=== PATIENT | female | born 1995 | race Caucasian/White ===

== ENCOUNTER 2023-10-18 19:51 | Observation (INO) | payer BC, SELFPAY ==
--- NOTE | 2023-10-18 20:31 | P.EN_ITS ---
Event Note Event Note: [id number] patient texted me at home Hey I'm heading to the hospital soon. I wasn't sure where the number came from so I called it and she said I can't talk, talk to my aunt. The aunt stated she's been hima and they are about every minute and they have been for awhile. She then stated she was in the tub and they would go to the hospital soon. 1930 I was waiting at the hospital for the patient and at 1930 i called the patient and asked if she was ok and was she coming? They were on [address] and headed to the hospital. 1950 patient arrives on unit and has multiple family members. Her mother in law spoke with me and stated they were planning a home , the aunt was there and she has had 9 children, and told Kathleen Gagan ( the mother in law) that she can deliver this baby. Ktahleen states they were gathering blankets, patient was in the tub, and they had scissors ready to cut the cord. She states to me I got scared and I told them this is not safe and you need to go to the hospital. She then told me she had the C/S before with Yun so I knew it was dangerous. I did not know the patient was a previous section. Her care was very limited with me due to the medical treatment and needs of her 4 yo who has an inoperable brain cancer. I ran to the room and multiple family members there and I had difficulty speaking with patient as her and other family members spoke for her. She kept repeating to me it's ok, i just want peace, i can do this, I can't have a c section. I explained to her in depth it is dangerous to attempt vaginal here after previous section. I told her I would call Dr Licona and we would do the section safely and deliver her baby. She refused, her spoke and stated we are leaving, we are not staying. We are going home. I did reinforce to him this is dangerous and she should not leave the hospital as this is not safe. I educated them they need to be in a hospital for the safety of Shahnaz and the unborn baby. Nursing staff remains present in the room with me. As I'm speaking the was picking up their personal belongings and kept repeating, we are leaving, we are going home. Shahnaz stated Arielle please just pray for me, I can do this. I want to do this with Yun, she has to be with us. I did repeat to her Shahnaz this is not safe for you. Her refused to talk with me anymore, a member asked what hospital does TOLAC and I did tell them [facility] and to go there if they are leaving here. The refused to answer, we discussed an AMA paper and he stated we are not filling anything out, I am not signing anything, and we are leaving. I asked him to at least tell me if they were going to [facility] so we could let them know she is coming, and he said I'm not answering anything and we are leaving. 2015 patient and family leave the room and begin ambulating out of the department. I did ask again to please reconsider and stay and let us deliver so we can safely take care of her. Again, she refused, and stated I'm not having a section and never was going to. Patients mother in law Kathleen Farah is tearful and states to me I'm so sorry and I need to make them stay but my son is very difficult. I know this is the right thing to do and it's dangerous for them to leave. She then repeats to me I knew it was dangerous when they said they were going to deliver this baby at home. As she left the department with them, she was tearful and apologized to me and states I know the safest thing to do is for them to stay here. I called Dr Licona and gave him report and also called warehouse stocker and security. The supervisor pipe finishing and [employer] security consultant approached them outside from the report i was given from warehouse stocker and they refused to speak with them, and they were again advised to return to OB dept for the safety of the patient and the baby and refused, and warehouse stocker reported to me they sped off. In summary: patient had very limited care with me due to the medical illness of their 4 yo daughter. We had attempted multiple times from the office to call and get her appointments. She had refused her 1 hr glucose testing. I did advise her to do home glucose monitoring and record it. She was to bring the logs to my office with her and every appt since then she did not have it with her. I inquired multiple times about it and she always repeated to me that she would send it to me. I have never received it. I also phoned her on Thursday10/16/23 at 6:12 pm to check on her and ask for her glucose log. She stated to me I'll text it to you now, and I never received it. I also educated her on since I did not have her glucose logs, I cannot determine if she is diabetic or not and I recommended that she go to the hospital for an NST and BPP. Patient stated to me after hesitating Arielle god has guided us on our journeys so far and I am on a good path with God on this journey as well, so I'm going to refuse that. I did reinforce the importance of knowing well being, she again refused.
--- NOTE | 2023-10-18 20:40 | PC.NURSE ---
Administrative Asst called to [facility] by nursing staff regarding patient leaving AMA while appearing in active labor, staff requested security accompany maple products supervisor. Earlier in the evening when the patient was coming to [facility] for admission the maple products supervisor encountered the patient with her family in the hallway. At this time the patient was leaning against the wall and holding the handrail breathing through contractions. Administrative Asst offered a wheelchair and assistance into the FBC unit, but assistance was declined. When the maple products supervisor was called regarding the patient leaving AMA the patient, spouse, and family was passed in cardoza while they were leaving. Administrative Asst proceeded to [facility] to speak with staff and met security on the unit. Per staff, patient and spouse upset she is unable to TOLAC at this facility and declined admission and a . Patient refused to sign AMA paperwork. Staff and Arielle CNM educated patient regarding the safety risks to both her and the baby if she leaves AMA. [facility] director, Dorinda, notified and maple products supervisor went to [facility] lot with security to attempt to educate patient on the risks of leaving hospital while appearing in active labor. Administrative Asst approached the patient's spouse as patient was on her phone and sitting on the bench on the sidewalk. Spouse would not look at or speak with the maple products supervisor. Administrative Asst attempted to express the safety concern for mother and baby if they choose to leave the hospital. Spouse and patient did not respond to maple products supervisor. Administrative Asst then asked what facility they are planning on going to so the receiving L&D unit can be called on their behalf to assist with their transition to that hospital. No response to the inquiry from either the spouse or the patient. At this time a pickup truck pulled up to the sidewalk and patient got into the front passenger seat in a semi-reclined position, appearing to be uncomfortable. Spouse then entered the truck as the water taxi driver. Patient's mother in law approached staff and apologized reporting I don't agree with what they are doing. Patient and spouse quickly drove off through the parking lot. [facility] director notified of outcome.
--- NOTE | 2023-10-18 23:18 | PC.NURSE ---
At approximately 1953 Pt Shahnaz Farah presented to the [facility] unit with her , daughter, Pt's aunt, and Pt's mother in law and 2 other family members. Pt was walking slowly, stopping and holding the wall approx. every five feet breathing heavily through contractions. Pt unable to verbalize full sentences, and is breathing heavily. This RN brings wheel chair to [facility] hallway to take Pt to her room in 258. Pt refused to use wheel chair and stated I'm going to walk paused and stated I?ll get there slowly but surely . This RN asked Pt if she had any complications with first and delivery. Pt reported no. This RN asked if Pt experienced any abnormal bleeding or post- hemorrhage with her first delivery and Pt's family answered no .? Pt presented to the room and remained standing, leaning over the bedside table breathing. I asked the pt if she was able to void, explained if not it was ok. Pt did not answer this RN but remained standing over the table breathing. Pt then asked what we were planning on giving her via IV, before I could answer Pt verbalized she did not want fluids or Pitocin. This RN explained to Pt she can refuse Pitocin and fluids, but strongly encouraged IV access such as a saline lock in case of any emergencies with heart tones, or bleeding etc. Pt did not respond and family member then asked this RN What are you guys planning to do right now for her (pt and baby) This RN explained I need the Pt to lay down in bed so I can perform a cervical exam to determine how imminent delivery is as Pt behavior is indicative of being in active labor possibly close to delivery. Pt stated I don't want to be checked right now. This RN responded and said Ok, we don't have to do that right now I can make the provider aware of your wishes provider is Arielle Delacruz CNM who was in the unit at nurses station.? Pt's family member then asked again what this RN's plan was. This RN explained once the Pt is in bed I will apply the US and TOCO traducers so I can monitor the baby. Pt's family member asked if Pt could walk around the hallway. This RN explained that unfortunately I cannot safely allow Pt to walk around the hallway or Pt room at this point in time, d/t not having properly assessed the Pt yet and being unaware of cervical dilation. That it would be unsafe d/t possibility of delivering the baby while not in a bed, and not having proper equipment and supplies for delivery or IV access. I stressed to the family without knowing how far labor has progressed, it is a Pt safety issue for Pt and baby. At that time Pt's loudly and sternly stated She is not getting checked then he was heard telling the other family members let?s just go and began gathering Pt's items. At this time CNM entered the room and asked Pt Shahnaz, you had a with Yun? CNM then explained to Pt that she needs prepped for a STAT as this facility does not perform VBACS. Pt through heavy breathing began trying to verbalize to CNM she does not want a and asked her to just deliver her vaginally. Pt was breathing heavily and kept repeating to CNM things like I can do this, you can do this, I want peace, I am not having surgery. ? Family members were speaking over Pt? at this time, verbalizing they are just going to go somewhere that does VBACs, or they'll deliver on their own, etc. Family started asking this RN, CNM and other RN in room what facilities around here do VBACs. CNM explained to Pt the surrounding hospitals do not perform 's. Their best bet would be [facility] but explained they will not ?without? Pt records either and strongly stressed the importance of what is safest for mom and baby, educated pt. and family the dangers of a , stressed the safest route for mom and baby is to have a repeat at this time. Pt was adamant that she was not having a . began gathering belongings and stated ?We do not have to do anything, We don?t have to listen to them, we don?t have to stay here and we don?t have to sign anything? then approached Pt from behind gently wrapped his arms around her chest and told Pt. we're leaving, let?s go then proceeded to pack up their belongings. This RN reinforced that it is unsafe to leave at this time. This RN stated Please stay and let us care for you, I do not want you to be stuck delivering a baby on the side of the road...? This RN was interrupted by Pt's family member, the aunt, as she sternly stated We can deliver this baby. Simultaneously the kept repeating were leaving, I am getting truck ready CNM continued to educate the Pt on the dangers of a without biomedical engineering supervisor or in a medical facility, specifically told the Pt and Aunt of the Pt she is at risk for uterine rupture. Pts family was visibly upset by this and began walking out of the room. CNM asked several more times for Pt to stay, as family was talking over her and were packing their belongings. CNM then asked Pt to Please at least me let me check and see how far you are dilated. Pt refused. stated again No one is checking her we're leaving. CNM inquired where they were going to when they left. Neither pt., nor her family members would tell staff if they were going to another facility or home. Pt's told Pt and family not to tell ([facility] staff) where they were going. CNM explained to Pt and family that [facility] protocol is to sign an AMA form, which the Pt refused to do so. At this time, approx. 2014 this RN left the room and went to nurses? station to retrieve the AMA forms. At that time room service supervisor was called and informed of the situation (at 2017) via phone call per this RN. RN supervisor pipe finishing advised she was on her way to [facility] to assist. The Pt and family then proceeded to leave the unit. A family member approached this nurse at the nurses station as the Pt and rest of her libertarian were exiting. This family member explained to this RN she is the Pts mother in law. She states I am so sorry. My son is very difficult to deal with . This RN asked the mother in law Do you know if this is the Pt's choice or her husbands? The mother in law stated it was their (Pt and husbands) plan to have a home all along, and have been laboring at home all day. They were going to deliver at home and I talked them into coming in for help. The Pt and family then left the unit.
--- NOTE | 2023-10-18 23:20 | PC.NURSE ---
This RN entered the room to assist with admission, and remained standing at bedside during conversations charted by Kg Valladares RN and Arielle Delacruz CNM. This RN agrees with the note written by Kg Valladares RN.
--- NOTE | 2023-10-19 15:11 | PC.NURSE ---
Addendum- late entry 10/19/2023- 0945 am- It was learned that this patient was admitted to [facility] for delivery.
== END 2023-10-18 20:17 | disposition left against medical advice (07) ==
PROVIDERS: Admitting Provider Midwife; Visit Provider Midwife
DX: O34.219 Maternal care for unspecified type scar from previous cesarean delivery (principal); O09.30 Supervision of pregnancy with insufficient antenatal care, unspecified trimester; Z3A.00 Weeks of gestation of pregnancy not specified; Z53.29 Procedure and treatment not carried out because of patient's decision for other reasons
CPT/HCPCS: G0379